=== PATIENT | female | born 1980 | race American Indian/Alaskan Native ===

== ENCOUNTER 2017-06-30 18:24 | Emergency (ER) | payer MEDICAID ==
[2017-06-30 23:58] LABS: Albumin/Globulin Ratio 0.5 %; Alkaline Phosphatase 70 units/L (35-129); Anion Gap 25 mmol/L; Calcium 7.3 mg/dL (8.4-10.2); Carbon Dioxide 12 mmol/L (22-30); Chloride 103.8 mmol/L (98-107); Glucose 102 mg/dL (65-100); Potassium 5.1 mmol/L (3.6-5.0); Sodium 136 mmol/L (137-145)
[2017-06-30 23:59] LABS: Alanine Aminotransferase < 5 units/L (7-56)
[2017-07-01 00:05] LABS: BUN/Creatinine Ratio 6.92; Blood Urea Nitrogen 115 mg/dL (7-17)
--- NOTE | 2017-07-01 03:22 | Emergency Department Report ---
ED Recheck HPI - General Chief Complaint: Recheck/Abnormal Lab/Rx Stated Complaint: NEEDS POTASSIUM CHECK, MISSED DIALYSIS Time Seen by Provider: 07/01/17 03:08 Source: patient Mode of arrival: Ambulatory Limitations: No Limitations - History of Present Illness Initial Comments: Patient presents to emergency department after missing dialysis yesterday. She is requesting labs to determine if she can get dialysis tomorrow. She states that her dialysis center requested basic lab work. She has no symptoms of shortness of breath chest pain or volume overload. MD Complaint: abnormal lab -: Gradual Returns Today for: CBOAL Symptoms Since Prior Visit: no new symptoms Context: called for abnorm lab res Associated Symptoms: none - Related Data Home Medications Medication Instructions Recorded Confirmed Last Taken Unobtainable 07/01/17 07/01/17 Unknown Allergies Allergy/AdvReac Type Severity Reaction Status Date / Time ergocalciferol (vitamin D2) Allergy Hives Verified 07/01/17 02:42 [From Vitamin D2] ED Review of Systems ROS: Stated complaint: NEEDS POTASSIUM CHECK, MISSED DIALYSIS Other details as noted in HPI Respiratory: denies: cough, shortness of breath, SOB with exertion Cardiovascular: denies: chest pain, palpitations Musculoskeletal: back pain. denies: arthralgia Neurological: denies: weakness, numbness, paresthesias ED Past Medical Hx - Past Medical History Hx Renal Disease: Yes - Family History Family history: no significant - Social History Smoking Status: Never Smoker Substance Use Type: Marijuana - Medications Home Medications: Home Medications Medication Instructions Recorded Confirmed Last Taken Type Unobtainable 07/01/17 07/01/17 Unknown History ED Physical Exam - General Limitations: No Limitations General appearance: alert, in no apparent distress, obese - Head Head exam: Present: atraumatic, normocephalic - Eye Eye exam: Present: normal appearance. Absent: scleral icterus, conjunctival injection - Neck Neck exam: Present: normal inspection. Absent: lymphadenopathy - Respiratory Respiratory exam: Present: normal lung sounds bilaterally. Absent: respiratory distress, wheezes - Cardiovascular Cardiovascular Exam: Present: regular rate, normal rhythm, normal heart sounds - GI/Abdominal GI/Abdominal exam: Present: soft. Absent: guarding, rebound - Extremities Exam Extremities exam: Present: normal inspection - Back Exam Back exam: Absent: tenderness, muscle spasm, paraspinal tenderness - Neurological Exam Neurological exam: Present: alert, oriented X3 ED Course Vital Signs 06/30/17 07/01/17 18:35 02:42 Temperature 98.1 F Pulse Rate 74 72 Respiratory 18 14 Rate Blood Pressure 154/94 Blood Pressure 151/90 [Left] O2 Sat by Pulse 98 100 Oximetry ED Recheck MDM - Medical Decision Making Patient here for lab check. Potassium is 5.5. She has no symptoms. Plan to treat patient with Kayexalate, check EKG and as long as there are no evidence of hyperkalemia on EKG we'll plan to discharge the patient home. Patient is comfortable with this plan and will follow up immediately with dialysis in the a.m. EKG shows sinus 72 on normal there is no evidence of hyperkalemia on EKG. Plan to discharge the patient home. We'll give a dose of 30 mg of Kayexalate. Portions of this chart were dictated with dictation software. There may be dictation errors contained within this note. Critical care attestation.: If time is entered above; I have spent that time in minutes in the direct care of this critically ill patient, excluding procedure time. ED Disposition Clinical Impression: Hyperkalemia Disposition: DC-01 TO HOME OR SELFCARE Is pt being admited?: No Condition: Stable Referrals: KISHORE FRANCO [Other] - 3-5 Days
[2017-07-01] MEDS ORDERED: KIONEX PO ONE (03:52)
[2017-07-01 04:08] VITALS: BP 146/84
== END 2017-07-01 04:08 | disposition home or self-care (01) ==
LOC: ED 18:24
DX: E87.5 Hyperkalemia (principal); F12.10 Cannabis abuse, uncomplicated; N18.6 End stage renal disease
CPT/HCPCS: 36415; 80053; 93005; 93010

== ENCOUNTER 2017-07-18 12:55 | Emergency (ER) | payer MEDICAID ==
[2017-07-18 14:55] LABS: BUN/Creatinine Ratio 3.75; Calcium 8.2 mg/dL (8.4-10.2); Chloride 96.6 mmol/L (98-107); Potassium 3.6 mmol/L (3.6-5.0)
--- NOTE | 2017-07-18 16:11 | XRay Report ---
FINAL REPORT EXAM: XR CHEST ROUTINE 2V HISTORY: Shortness of breath TECHNIQUE: PA and lateral views of the chest PRIORS: None. FINDINGS: Lines, tubes, and devices: Double-lumen right jugular catheter terminates in the distal superior vena cava. Lungs and pleura: Trachea is normal in position. Lungs are clear of infiltrate, pleural effusion, vascular congestion, or pneumothorax. Cardiomediastinal silhouette: Cardiac and mediastinal silhouettes are unremarkable. Other: Bony structures demonstrate degenerative disc changes throughout the thoracic spine. IMPRESSION: No acute cardiopulmonary process seen.
--- NOTE | 2017-07-18 16:56 | Emergency Department Report ---
HPI - General Chief Complaint: Dizziness Time Seen by Provider: 07/18/17 16:15 - HPI HPI: This is a 37 year-old female presents to the emergency department by EMS with complaint of some dizziness and suspected low hemoglobin. The patient is end-stage renal disease on hemodialysis on Wednesday/ Wednesday/Wednesday. She recently moved here from [place] and therefore does not have any established rat trapper. She did receive dialysis last Wednesday but afterwards she says that she was told that her hemoglobin was low and if they had known the level prior to dialysis, that they would not have given her dialysis and instead would have sent her into the emergency department. She was told that she needs to get her hemoglobin rechecked to make sure that she does not need a transfusion. The patient's only physical complaint is some mild dizziness. She says that she walked across the street from her hotel to a store and was very dizzy and had to sit down. She has some dizziness still but it is improved without any intervention. She denies any headache, visual change , slurred speech, chest pain, shortness of breath. ED Past Medical Hx - Past Medical History Previous Medical History?: Yes Hx Renal Disease: Yes (HD on M-W-F) Additional medical history: Anemia - Surgical History Past Surgical History?: Yes Additional Surgical History: Right chest permcath - Social History Smoking Status: Current Some Day Smoker Substance Use Type: Marijuana - Medications Home Medications: Home Medications Medication Instructions Recorded Confirmed Last Taken Type Unobtainable 07/01/17 07/01/17 Unknown History ED Review of Systems ROS: Stated complaint: LIGHT HEADEDNESS Other details as noted in HPI Comment: All other systems reviewed and negative Constitutional: denies: chills, fever Eyes: denies: eye pain, eye discharge, vision change ENT: denies: ear pain, throat pain Respiratory: denies: cough, shortness of breath, wheezing Cardiovascular: denies: chest pain, palpitations Gastrointestinal: denies: abdominal pain, nausea, diarrhea Genitourinary: denies: urgency, dysuria, discharge Musculoskeletal: denies: back pain, joint swelling, arthralgia Skin: denies: rash, lesions Neurological: other (dizziness). denies: headache, paresthesias Physical Exam - Physical Exam Vital Signs: Vital Signs 07/18/17 14:08 Temperature 98.1 F Pulse Rate 82 Respiratory 18 Rate Blood Pressure 122/69 O2 Sat by Pulse 100 Oximetry Physical Exam: GENERAL: The patient is well-developed well-nourished. HENT: Normocephalic. Atraumatic. Patient has moist mucous membranes. No nystagmus. EYES: Extraocular motions are intact. Pupils equal reactive to light bilaterally. NECK: Supple. Trachea is midline. CHEST/LUNGS: Clear to auscultation. There is no respiratory distress noted. There is a Vas-Cath in the right chest wall. HEART/CARDIOVASCULAR: Regular. There is no tachycardia. There is no gallop rub or murmur. ABDOMEN: Abdomen is soft, nontender. Patient has normal bowel sounds. There is no abdominal distention. Obese habitus. SKIN: Skin is warm and dry. NEURO: The patient is awake, alert, and oriented. The patient is cooperative. The patient has no focal neurologic deficits. The patient has normal speech. MUSCULOSKELETAL: There is no tenderness or deformity. There is no limitation range of motion. There is no evidence of acute injury. ED Course Vital Signs 07/18/17 14:08 Temperature 98.1 F Pulse Rate 82 Respiratory 18 Rate Blood Pressure 122/69 O2 Sat by Pulse 100 Oximetry ED Medical Decision Making - Lab Data Result diagrams: 07/18/17 17:28 07/18/17 14:28 - EKG Data -: EKG Interpreted by Nc EKG shows normal: sinus rhythm, axis, intervals (Prolonged QTc), QRS complexes, ST-T waves Rate: normal - EKG Data When compared to previous EKG there are: previous EKG unavailable Interpretation: other (Sinus Ryhtm, No STEMI, with slightly prolonged QTc) - Radiology Data Radiology results: image reviewed interpreted by me: Chest x-ray does not show any acute process. There are no pleural effusions, obvious pneumonia and there is no pneumothorax. - Medical Decision Making 37-year-old female presents to the emergency department for evaluation of possible anemia. She has some nonspecific dizziness. Physical examination of focal, motor or sensory deficits in her cranial nerves are intact. Hemoglobin came back at 7. This is most likely secondary to anemia of chronic kidney disease as there is no acute blood loss. As the patient's dizziness could be symptomatic anemia, and since the patient may not get dialysis with a hemoglobin of 7, per the dialysis center, the plan was going to be to give her a one unit transfusion of packed red blood cells. However the patient demanded that the transfusion be given through the Vas-Cath. We explained her that the Vas-Cath is for dialysis and not for blood draws, IV fluid or blood transfusion in the emergency department. She refused any attempts at peripheral IV placement. She understands that without the IV placement that we cannot give her a transfusion. She understands that she could have worsening of her dizziness, development of shortness of breath or chest pain, syncope. Despite understanding these risks she still refuses peripheral IV placement and has signed out against medical advise. She understands that she can return to the emergency department remained point if she changes her mind or if any acute distress. Critical Care Time: No Critical care attestation.: If time is entered above; I have spent that time in minutes in the direct care of this critically ill patient, excluding procedure time. ED Disposition Clinical Impression: Dizziness Anemia in chronic kidney disease Qualifiers: Chronic kidney disease stage: on chronic dialysis Qualified Code(s): N18.6 - End stage renal disease; D63.1 - Anemia in chronic kidney disease; Z99.2 - Dependence on renal dialysis CKD (chronic kidney disease) Qualifiers: Chronic kidney disease stage: on chronic dialysis Qualified Code(s): N18.6 - End stage renal disease; Z99.2 - Dependence on renal dialysis Disposition: DC-07 LEFT AGAINST MED ADVICE Is pt being admited?: No Condition: Stable Referrals: PRIMARY CARE [Primary Care Provider] - 3-5 Days Forms: AMA Form Time of Disposition: 22:47
[2017-07-18 17:38] LABS: Basophils % (Auto) 0.6 % (0.0-1.8); Eosinophils % (Auto) 0.6 % (0.0-4.3); Hematocrit 22.2 % (30.3-42.9); Mean Corpuscular HGB Conc 32 % (30-34); Mean Corpuscular Volume 81 fl (79-97); Platelet Count 279 K/mm3 (140-440); Red Blood Count 2.74 M/mm3 (3.65-5.03); White Blood Count 8.8 K/mm3 (4.5-11.0)
[2017-07-18 17:40] LABS: Mean Corpuscular Hemoglobin 26 pg (28-32)
[2017-07-18] MEDS ORDERED: NACL 0.9% 500 ML 500 ML IV ONE (17:48)
[2017-07-18 21:46] VITALS: BP 128/80
== END 2017-07-18 21:47 | disposition left against medical advice (07) ==
LOC: ED 12:55
DX: R42 Dizziness and giddiness (principal); D63.1 Anemia in chronic kidney disease; N18.6 End stage renal disease; Z99.2 Dependence on renal dialysis; F17.200 Nicotine dependence, unspecified, uncomplicated; F12.10 Cannabis abuse, uncomplicated; Z88.8 Allergy status to other drugs, medicaments and biological substances
CPT/HCPCS: 36415; 71020; 80048; 85025; 86850; 86900; 86901; 86920; 93005; 93010; 99284; J7040; 36430

== ENCOUNTER 2017-09-09 14:38 | Emergency (ER) | payer SELFPAY ==
[2017-09-09 15:24] LABS: Basophils % (Auto) 0.5 % (0.0-1.8); Hematocrit 28.3 % (30.3-42.9); Hemoglobin 8.5 gm/dl (10.1-14.3); Mean Corpuscular HGB Conc 30 % (30-34); Mean Corpuscular Hemoglobin 26 pg (28-32); Mean Corpuscular Volume 88 fl (79-97); Platelet Count 281 K/mm3 (140-440); Red Blood Count 3.22 M/mm3 (3.65-5.03); Red Cell Distribution Width 18.1 % (13.2-15.2); White Blood Count 12.3 K/mm3 (4.5-11.0)
[2017-09-09 15:39] LABS: Anion Gap 24 mmol/L; BUN/Creatinine Ratio 3; Blood Urea Nitrogen 36 mg/dL (7-17); Calcium 8.3 mg/dL (8.4-10.2); Carbon Dioxide 23 mmol/L (22-30); Chloride 95.1 mmol/L (98-107); Glucose 102 mg/dL (65-100); Sodium 138 mmol/L (137-145)
--- NOTE | 2017-09-09 16:04 | Emergency Department Report ---
ED Dizziness HPI - General Chief Complaint: Dizziness Stated Complaint: FEELING WEAK/LOW BP Time Seen by Provider: 09/09/17 15:34 Source: patient, EMS Mode of arrival: Stretcher Limitations: No Limitations - History of Present Illness Initial Comments: 37 YO FEMALE H/O CHRONIC RENAL FAILURE AND ON DIALYSIS HAD A CATHETER EXCHANGE YESTERDAY WHO WAS WALKING DOWN THE STREET WHEN SHE BECAME NAUSEATED AND VOMITED ONCE. PT DID NOT HAD CHEST PAINOR SOB BUT WAS DIZZY. SHE HAD BEEN WALKING 3/4 OF [place]. HER DIALYSIS IS MWF. HER PRESSURE WAS SYSTOLIC 80. MD Complaint: dizziness -: Sudden History of Same: No History of Trauma: No Severity: moderate Improves With: nothing Worsens With: nothing Associated Symptoms: denies other symptoms - Related Data Home Medications Medication Instructions Recorded Confirmed Last Taken Unobtainable 07/01/17 07/01/17 Unknown Allergies Allergy/AdvReac Type Severity Reaction Status Date / Time ergocalciferol (vitamin D2) Allergy Hives Verified 09/09/17 14:47 [From Vitamin D2] ED Review of Systems ROS: Stated complaint: FEELING WEAK/LOW BP Other details as noted in HPI Constitutional: denies: chills, fever Eyes: denies: eye pain, eye discharge, vision change ENT: denies: ear pain, throat pain Respiratory: denies: cough, shortness of breath, wheezing Cardiovascular: denies: chest pain, palpitations Endocrine: no symptoms reported Gastrointestinal: denies: abdominal pain, nausea, diarrhea Genitourinary: denies: urgency, dysuria, discharge Musculoskeletal: denies: back pain, joint swelling, arthralgia Skin: denies: rash, lesions Neurological: denies: headache, weakness, paresthesias Psychiatric: denies: anxiety, depression Hematological/Lymphatic: denies: easy bleeding, easy bruising ED Past Medical Hx - Past Medical History Hx Hypertension: Yes Hx Heart Attack/AMI: No Hx Congestive Heart Failure: No Hx Diabetes: No Hx Renal Disease: Yes Additional medical history: Anemia - Surgical History Additional Surgical History: Right chest permcath - Social History Smoking Status: Never Smoker Substance Use Type: Alcohol - Medications Home Medications: Home Medications Medication Instructions Recorded Confirmed Last Taken Type Unobtainable 07/01/17 07/01/17 Unknown History ED Physical Exam - General Limitations: No Limitations ED Course Vital Signs 09/09/17 09/09/17 09/09/17 14:47 15:06 17:11 Temperature 98.8 F 98.4 F 98.4 F Pulse Rate 69 77 78 Respiratory 18 16 16 Rate Blood Pressure 90/53 Blood Pressure 97/54 116/59 [Right] O2 Sat by Pulse 99 100 100 Oximetry - Reevaluation(s) Reevaluation #1: 09/09/17 16:[address] WITHOUT DIFFICULTY, NO DIZZINESS. ED Medical Decision Making - Lab Data Result diagrams: 09/09/17 15:05 09/09/17 15:05 - EKG Data -: EKG Interpreted by Me EKG shows normal: sinus rhythm, axis, intervals, QRS complexes, ST-T waves - Radiology Data Radiology results: report reviewed (cxr:negative CTA CHEST: NO PE) Critical care attestation.: If time is entered above; I have spent that time in minutes in the direct care of this critically ill patient, excluding procedure time. ED Disposition Clinical Impression: Dizziness, ESRD on dialysis Anemia Qualifiers: Anemia type: due to chronic kidney disease Chronic kidney disease stage: on chronic dialysis Qualified Code(s): N18.6 - End stage renal disease Hypotension Qualifiers: Hypotension type: unspecified hypotension type Qualified Code(s): I95.9 - Hypotension, unspecified Disposition: DC-01 TO HOME OR SELFCARE Is pt being admited?: No Does the pt Need Aspirin: No Condition: Stable Instructions: Dizziness (ED), Hypotension (ED), Anemia (ED) Additional Instructions: PLEASE REST AT HOME, SEE YOUR DR TOMORROW Referrals: PRIMARY CAREMD [Primary Care Provider] - 3-5 Days Time of Disposition: 19:36
--- NOTE | 2017-09-09 19:29 | Cat Scan Report ---
FINAL REPORT EXAM: CT CHEST WO CON HISTORY: CHEST PAIN TECHNIQUE: Standard unenhanced CT of the chest at 2.5 mm axial increments. Coronal and sagittal reconstruction was also obtained. PRIORS: None. FINDINGS: The lung parenchyma are expanded and clear with no evidence for parenchymal nodules, infiltrates, vascular congestion, pleural effusion, or pneumothorax. There is no evidence for mediastinal, hilar, or axillary adenopathy. The esophagus is collapsed. The trachea is midline. Cardiovascular structures are within normal limits. Cardiac size and aorta are normal. Images through the lung bases include upper abdomen which show large staghorn calculi in the left kidney. There is a large calculus in the right renal pelvis/ureteropelvic junction there is ring 14 x 6 mm (axial image 154). There is also a large triangular-shaped calcification in the left renal pelvis measuring 1.8 x 3.2 cm (axial image 146). Both kidneys are enlarged and have hypodense medullary pyramids bilaterally. Findings are likely due to chronic obstruction. Bony structures show no focal abnormalities. No evidence for bony fracture is seen. Degenerative disc changes throughout the thoracic spine are present. Large spurs are present throughout the thoracic spine. IMPRESSION: 1. no acute abnormality identified in the chest. 2. Large staghorn calculi in the left kidney. Bilateral calculi in the renal pelvises or ureteropelvic junction on the right is seen.
[2017-09-09 19:47] VITALS: BP 133/71
--- NOTE | 2017-09-09 20:54 | Nuclear Medicine Report ---
FINAL REPORT EXAM: NM LUNG SCAN PERF/VENT HISTORY: ?PE TECHNIQUE: Perfusion imaging of the lungs was performed in multiple planar projections. Ventilation imaging was performed in the posterior projection during initial, equilibrium, and washout phases. Correlation with a chest x-ray dated 09/09/2017 was made. DOSE: 15.0 millicuries Xe-133 gas; 5.0 millicuries 99m Tc MAA given IV. PRIORS: None. FINDINGS: There are multiple subsegmental perfusion defects in the upper and lower lobes on the right. No corresponding abnormality on ventilation is seen. There is also subtle defect in the lateral aspect of the lingula. Findings are worrisome for pulmonary embolism. Ventilation study is homogeneous throughout with normal equilibrium and washout. No evidence for air trapping is seen. IMPRESSION: High probability v/Q scan. Multiple profusion defects identified in the right upper and lower lobes and lingula.
--- NOTE | 2017-09-13 08:18 | XRay Report ---
FINAL REPORT EXAM: XR CHEST ROUTINE 2V HISTORY: near syncope TECHNIQUE: PA and lateral chest radiographs. Note that images were acquired on 09/09/2017 but not submitted for interpretation until 09/13/2017 PRIORS: 07/18/2017, noncontrast CT and ventilation-perfusion scan on 09/09/2017 FINDINGS: No mediastinal shift. Cardiac silhouette is not enlarged. Unchanged right chest central line. No pneumothorax, effusion, or focal pulmonary opacity. No acute skeletal finding. IMPRESSION: No focal pulmonary opacity.
== END 2017-09-09 20:20 | disposition home or self-care (01) ==
LOC: ED 14:38
DX: I95.9 Hypotension, unspecified (principal); R42 Dizziness and giddiness; I12.0 Hypertensive chronic kidney disease with stage 5 chronic kidney disease or end stage renal disease; N18.6 End stage renal disease; D64.9 Anemia, unspecified; Z88.8 Allergy status to other drugs, medicaments and biological substances; Z99.2 Dependence on renal dialysis
CPT/HCPCS: 36415; 71020; 71250; 78582; 80048; 81025; 84484; 85025; 93005; 93010; 99285; A9540; A9558

== ENCOUNTER 2017-09-09 22:56 | Inpatient (IN) | payer MEDICAID ==
--- NOTE | 2017-09-09 23:29 | Emergency Department Report ---
ED General Adult HPI - General Stated complaint: CALL BACK Time Seen by Provider: 09/09/17 23:27 Source: patient Mode of arrival: Ambulatory Limitations: No Limitations - History of Present Illness Initial comments: Patient is a 37-year-old female that was called back into the ER due to positive findings on a VQ scan for high probability of upper lobe and lower lobe right side PEs. She was here earlier today for dizziness and weakness and low blood pressure. patient has a past medical history of hemodialysis, hypertension, and anemia. Patient states she still have a weakness and dizziness. She denies chest pain shortness of breath this time. -: Gradual Consistency: constant Improves with: none Worsens with: none Associated Symptoms: weakness Treatments Prior to Arrival: none - Related Data Home Medications Medication Instructions Recorded Confirmed Last Taken Unobtainable 07/01/17 07/01/17 Unknown Allergies Allergy/AdvReac Type Severity Reaction Status Date / Time ergocalciferol (vitamin D2) Allergy Hives Verified 09/09/17 14:47 [From Vitamin D2] ED Review of Systems ROS: Stated complaint: CALL BACK Other details as noted in HPI Comment: All other systems reviewed and negative Constitutional: no symptoms reported, see HPI, weakness Eyes: as per HPI ENT: as per HPI Respiratory: no symptoms reported, see HPI Cardiovascular: as per HPI Endocrine: no symptoms reported, see HPI Gastrointestinal: as per HPI Genitourinary: as per HPI Musculoskeletal: as per HPI Skin: as per HPI Neurological: as per HPI Psychiatric: as per HPI Hematological/Lymphatic: as per HPI ED Past Medical Hx - Past Medical History Hx Hypertension: Yes Hx Heart Attack/AMI: No Hx Congestive Heart Failure: No Hx Diabetes: No Hx Renal Disease: Yes Additional medical history: Anemia - Surgical History Additional Surgical History: Right chest permcath - Social History Substance Use Type: Marijuana, Prescribed - Medications Home Medications: Home Medications Medication Instructions Recorded Confirmed Last Taken Type Unobtainable 07/01/17 07/01/17 Unknown History ED Physical Exam - General General appearance: alert, in no apparent distress - Head Head exam: Present: atraumatic, normocephalic - Eye Eye exam: Present: normal appearance - ENT ENT exam: Present: mucous membranes moist - Neck Neck exam: Present: normal inspection - Respiratory Respiratory exam: Present: normal lung sounds bilaterally. Absent: respiratory distress - Cardiovascular Cardiovascular Exam: Present: regular rate, normal rhythm. Absent: systolic murmur, diastolic murmur, rubs, gallop - GI/Abdominal GI/Abdominal exam: Present: soft, normal bowel sounds - Extremities Exam Extremities exam: Present: normal inspection - Back Exam Back exam: Present: normal inspection - Neurological Exam Neurological exam: Present: alert, oriented X3 - Psychiatric Psychiatric exam: Present: normal affect, normal mood - Skin Skin exam: Present: warm, dry, normal color, other (right chest permacath noted. ). Absent: rash ED Course Vital Signs 09/09/17 23:25 Temperature 98.9 F Pulse Rate 97 H Respiratory 18 Rate Blood Pressure 107/69 O2 Sat by Pulse 99 Oximetry ED Medical Decision Making - Medical Decision Making 7-year-old female found to have high probability on VQ scan called back in. Patient will be admitted. Hospitalist consulted for possible admission. Hospitalist agreed to admit. - Differential Diagnosis PE.dizziness. weakness Critical care attestation.: If time is entered above; I have spent that time in minutes in the direct care of this critically ill patient, excluding procedure time. ED Disposition Clinical Impression: Dizziness, Pulmonary embolism, Weakness Disposition: DC-09 OP ADMIT IP TO THIS HOSP Is pt being admited?: Yes Does the pt Need Aspirin: No Condition: Serious Referrals: PRIMARY CARE,MD [Primary Care Provider] - 3-5 Days
--- NOTE | 2017-09-09 23:57 | History and Physical Report ---
History of Present Illness Date of examination: 09/09/17 History of present illness: 37-year-old woman history of end-stage renal disease on dialysis Wednesday comes emergency room because she was walking to the bus stop to go to her sister's house for Thanksgiving when she developed dizziness, generalized weakness, vomiting, difficulty standing. Her blood pressure was low upon arrival to the emergency room. A VQ scan was ordered, the patient was discharged from the hospital but was later called back because her V/Q was positive for pulmonary emboli. Patient was just discharged from the hospital yesterday, no recent travel, leg pain Review Of Systems: Constitutional: no weight loss Ears, eyes, nose, mouth and throat: no nasal congestion, no nasal discharge, no sinus pressure, blurry vision, diplopia Neck: No neck pain or rigidity. Cardiovascular: no chest pain, orthopnea, palpitations Respiratory: No shortness of breath, cough Gastrointestinal: no abdominal pain, hematochezia Genitourinary : no dysuria, frequency , hematuria Musculoskeletal: no muscle ache Integumentary: no rash, no pruritis Neurological: no parathesias, focal weakness Endocrine: no cold or heat intolerance, no polyuria or polydipsia Hematologic/Lymphatic: no easy bruising, no easy bleeding, no gland swelling Allergic/Immunologic: no urticaria, no angioedema. PAST MEDICAL HISTORY:end-stage renal disease PAST SURGICAL HISTORY:none FAMILY HISTORY: Her potential SOCIAL HISTORY: 2 cigarettes a day, no alcohol or drug Medications and Allergies Allergies Allergy/AdvReac Type Severity Reaction Status Date / Time ergocalciferol (vitamin D2) Allergy Hives Verified 09/09/17 14:47 [From Vitamin D2] Home Medications Medication Instructions Recorded Confirmed Last Taken Type Unobtainable 07/01/17 07/01/17 Unknown History Exam - Physical Exam Narrative exam: Gen. appearance: Patient lying in bed in no acute distress HEENT: Normocephalic/atraumatic, pupils equal round reactive to light, extra alkaline movement intact, no scleral icterus, no JVD or thyromegaly or nodule, neck is supple, mucous membrane moist, no erythema or exudate Heart: S1-S2, regular rate and rhythm Lungs: Clear to auscultation bilateral breathing comfortable Abdomen: Positive bowel sounds, nontender, nondistended, no organomegaly Extremities: No edema, cyanosis, clubbing Neuro:: Oriented 3 , cranial nerves II-12 intact, speech, motor intact Skin: No rash, nodules, warm dry - Constitutional Vitals: Temp Pulse Resp BP Pulse Ox 98.9 F 97 H 18 107/69 99 09/09/17 23:25 09/09/17 23:25 09/09/17 23:25 09/09/17 23:25 09/09/17 23:25 Results - Imaging and Cardiology EKG: image reviewed Chest x-ray: image reviewed Assessment and Plan v/q reviewed Labs reviewed from the previous visit ER visit Assessment Acute pulmonary emboli End-stage renal disease on dialysis Anemia Plan Admit to medicine Start heparin drip, consult renal for dialysis Checkup of the lower extremity DVT prophylaxis initiated
[2017-09-10] MEDS ORDERED: DULCOLAX PR PRN (00:34)
[2017-09-10] MEDS ORDERED: ZOFRAN IV PRN (00:34)
[2017-09-10] MEDS ORDERED: TYLENOL PO PRN (00:34)
[2017-09-10] MEDS: HEPARIN/ 0.45% NACL-25,000 UNIT/500 ML 25,000 UNIT/500 ML BAG IV SCH ×2 (02:13→19:18)
--- NOTE | 2017-09-10 11:01 | Consultation ---
History of Present Illness - History of Present Illness Thank you for the consultation patient was evaluated today. Source of information; patient himself current records were also reviewed History of presenting illness; Patient is a 37-year-old -Ugand[place] female who has been admitted here with bilateral pulmonary embolism for which she has been initiated on IV heparin. Patient is currently being dialyzed at [facility] where she' s being followed by our group. Patient was just discharged yesterday from the hospital but due to follow VQ scan she was called in to get admitted. She has no complaints of any shortness of breath chest pain also has difficult vascular access and has been refusing lab draws as requested.. Patient's current access is a permacath which has been working well she has no recent history of fever or chills dysuria burning frequency urgency of urination. Patient has had a VQ scan which was showing high probably and hence she was started on IV heparin. Subjectively patient is feeling better. As of 09/09 her BOM is 36 creatinine is 11 potassium is 4.0 calcium 8.3 Past medical history is significant for hypertension End-stage renal disease Secondary hyperparathyroidism Morbid obesity Allergies:vitamin D Social history: positive for tobacco negative for alcohol and drugs Family history:negative for renal disorder Review of system is positive for dizziness shortness of breath Complete review of systems obtained pertinent positive above mother's review of systems negative Physical examination General: No acute distress HEENT: Oral mucosa moist no pharyngeal erythema no pallor or icterus no uremic order Neck: Supple no evidence of any thyromegaly trachea midline no JVD Chest: Clear to auscultation no crackles are also wheezes anteriorly Heart: Regular rate and rhythm S1-S2 heard no S3-S4 Abdomen: Soft nontender no renal bruit no CVA tenderness no suprapubic fullness no organomegaly Extremity: Minimal edema dry skin no peripheral cyanosis pulses palpable Neurological: Alert awake follows command grossly nonfocal examination Back: Nontender thoracolumbar spine Musculoskeletal: No joint effusion noted Skin: No petechial rash/noted Assessment and plan Assessment and plan End-stage renal disease patient is currently on maintenance hemodialysis: There is no acute emergent indication for renal replacement therapy today patient will dialyzed here on Wednesday schedule Anemia and end-stage renal disease current hemoglobin 8.5 to follow erythropoietin, with dialysis Secondary hyperparathyroidism: To monitor phosphorus and PTH level Morbid obesity: Counseled and educated for weight loss Poorly compliant patient counseled and educated to comply with lab draws Multiple comorbidities including end-stage disease, hypertension obesity secondary hyperparathyroidism Chronic tobacco abuse noted also discussed educated We'll continue to follow and make recommendation from renal standpoint Nature and issue of renal-related issues were discussed with patient, all questions were answered and simple Citizen Of [place] Patient does have good understanding about renal-related issues. Counseled and educated to get further education from [facility] and related links, and if any further question to clarify with me We'll continue to follow and make recommendations from renal standpoint If you have any questions please feel free to contact me at [phone] Medications and Allergies Allergies Allergy/AdvReac Type Severity Reaction Status Date / Time ergocalciferol (vitamin D2) Allergy Hives Verified 09/09/17 14:47 [From Vitamin D2] Home Medications Medication Instructions Recorded Confirmed Last Taken Type Unobtainable 07/01/17 07/01/17 Unknown History Active Meds: Active Medications Acetaminophen (Tylenol) 650 mg PO Q4H PRN PRN Reason: Pain MILD(1-3)/Fever >100.5/BALTAZAR Bisacodyl (Dulcolax) 10 mg VA QDAY PRN PRN Reason: Constipation unrelieved by MOM Heparin Sodium/Sodium Chloride (Heparin/ 0.45% Nacl-25,000 Unit/500 Ml) 25,000 unit in 500 mls @ 30 mls/hr IV TITR TAYLOR; 1,500 UNITS/HR PRN Reason: Protocol Last Admin: 09/10/17 02:13 Dose: 1,500 units/hr, 30 mls/hr Ondansetron HCl (Zofran) 4 mg IV Q8H PRN PRN Reason: N/V unrelieved by Reglan Oxycodone/Acetaminophen (Percocet 5/325) 1 tab PO Q6H PRN PRN Reason: Pain, Moderate (4-6) Exam - Vital Signs Vital signs: Vital Signs Resp 14 09/09/17 23:07
[2017-09-10 13:57] LABS: INR 1.1 (0.87-1.13)
[2017-09-10 13:58] LABS: Partial Thromboplastin Time 38.3 Sec. (24.2-36.6)
--- NOTE | 2017-09-10 16:05 | Progress Note ---
Assessment and Plan Assessment and plan: 37-year-old -Tunisian female with medical history significant for morbid obesity, ESRDon hemodialysis presented to the emergency department after she become short of breath and getting easily tired. In the emergency department VQ scan was done and significant for high probabilty PE Pulmonary embolism - Patient is on heparin drip - Vital signs stable - Doppler Ultrasound of the legs is negative for DVT End-stage renal disease on hemodialysis - Nephrology consulted Anemia of chronic illness - We'll follow H&H Morbid obesity - I have counseled her about weight loss DVT prophylaxis - On heparin Disposition - Continue inpatient care, will change to by mouth anticoagulation on discharge History Interval history: Patient was seen and evaluated this morning, patient denied any chest pain, shortness of breath. Patient refused blood draw claiming she is hard stick. Hospitalist Physical - Physical exam Narrative exam: Not in cardiopulmonary distress. The patient is morbidly obese. Vital signs as documented. Head exam is unremarkable. No scleral icterus . Neck is without jugular venous distension, thyromegaly, or carotid bruits. Lungs are clear to auscultation. Cardiac exam reveals regular rate and Rhythm. First and second heart sounds normal. No murmurs, rubs or gallops. Abdominal exam reveals normal bowel sounds, no masses, no organomegaly and no aortic enlargement. Extremities are nonedematous and both femoral and pedal pulses are normal. SEARCHLIGHT OPERATOR: Alert and oriented 3. No focal weakness. - Constitutional Vitals: Temp Pulse Resp BP Pulse Ox 98.4 F 71 18 132/84 99 09/10/17 07:57 09/10/17 07:57 09/10/17 07:57 09/10/17 07:57 09/10/17 07:57 Results - Labs Labs: Laboratory Last Values PT 14.8 Sec. (12.2-14.9) 09/10/17 13:33 INR 1.10 (0.87-1.13) 09/10/17 13:33 APTT 38.3 Sec. (24.2-36.6) H 09/10/17 13:33 Heparin Anti-Xa Level < 0.10 U.I./ml (0.3-0.7) L 09/10/17 13:33 - Imaging and Cardiology Imaging and Cardiology: VQ scan high problem PE
[2017-09-10] MEDS ORDERED: NACL 0.9% 100 ML IV PRN (16:12)
[2017-09-11 06:41] LABS: Basophils % (Auto) 0.4 % (0.0-1.8); Hematocrit 25.5 % (30.3-42.9); Mean Corpuscular HGB Conc 31 % (30-34); Mean Corpuscular Hemoglobin 27 pg (28-32); Mean Corpuscular Volume 87 fl (79-97); Platelet Count 255 K/mm3 (140-440); Red Blood Count 2.92 M/mm3 (3.65-5.03); Red Cell Distribution Width 17.8 % (13.2-15.2); White Blood Count 8.6 K/mm3 (4.5-11.0)
[2017-09-11 06:51] LABS: Chloride 98.4 mmol/L (98-107); Potassium 4.1 mmol/L (3.6-5.0)
[2017-09-11] MEDS: HEPARIN/ 0.45% NACL-25,000 UNIT/500 ML 25,000 UNIT/500 ML BAG IV SCH ×2 (08:09→23:32)
[2017-09-11] MEDS ORDERED: HEPARIN IV PRN (11:57)
[2017-09-11] MEDS ORDERED: NACL 0.9 (PRIMING MACHINE ONLY DIALYSIS) MC ONE (13:12)
--- NOTE | 2017-09-11 15:09 | Progress Note ---
Assessment and Plan Assessment and plan: 37-year-old -Ukrainian female with medical history significant for morbid obesity, ESRDon hemodialysis presented to the emergency department after she become short of breath and getting easily tired. In the emergency department VQ scan was done and significant for high probabilty PE Pulmonary embolism - Patient is on heparin drip - Vital signs stable - Doppler Ultrasound of the legs is negative for DVT End-stage renal disease on hemodialysis - Nephrology consulted Anemia of chronic illness - We'll follow H&H Morbid obesity - I have counseled her about weight loss DVT prophylaxis - On heparin Disposition - Continue inpatient care, will change to by mouth anticoagulation on discharge - PT evaluation History Interval history: Patient was seen and evaluated this morning, patient denied any chest pain, shortness of breath. Patient doesn't want blood draw. Hospitalist Physical - Physical exam Narrative exam: Not in cardiopulmonary distress. The patient is morbidly obese. Vital signs as documented. Head exam is unremarkable. No scleral icterus . Neck is without jugular venous distension, thyromegaly, or carotid bruits. Lungs are clear to auscultation. Cardiac exam reveals regular rate and Rhythm. First and second heart sounds normal. No murmurs, rubs or gallops. Abdominal exam reveals normal bowel sounds, no masses, no organomegaly and no aortic enlargement. Extremities are nonedematous and both femoral and pedal pulses are normal. SPANISH TUTOR: Alert and oriented 3. No focal weakness. - Constitutional Vitals: Temp Pulse Resp BP Pulse Ox 98.2 F 71 18 129/69 97 09/11/17 11:35 09/11/17 13:30 09/11/17 11:35 09/11/17 13:30 09/11/17 05:00 Results - Labs CBC & Chem 7: 09/11/17 05:11 09/11/17 05:11 Labs: Laboratory Last Values WBC 8.6 K/mm3 (4.5-11.0) 09/11/17 05:11 RBC 2.92 M/mm3 (3.65-5.03) L 09/11/17 05:11 Hgb 8.0 gm/dl (10.1-14.3) L 09/11/17 05:11 Hct 25.5 % (30.3-42.9) L 09/11/17 05:11 MCV 87 fl (79-97) 09/11/17 05:11 MCH 27 pg (28-32) L 09/11/17 05:11 MCHC 31 % (30-34) 09/11/17 05:11 RDW 17.8 % (13.2-15.2) H 09/11/17 05:11 Plt Count 255 K/mm3 (140-440) 09/11/17 05:11 Lymph % (Auto) 24.8 % (13.4-35.0) 09/11/17 05:11 Gonzales % (Auto) 10.8 % (0.0-7.3) H 09/11/17 05:11 Eos % (Auto) 4.0 % (0.0-4.3) 09/11/17 05:11 Baso % (Auto) 0.4 % (0.0-1.8) 09/11/17 05:11 Lymph # 2.1 K/mm3 (1.2-5.4) 09/11/17 05:11 Gonzales # 0.9 K/mm3 (0.0-0.8) H 09/11/17 05:11 Eos # 0.3 K/mm3 (0.0-0.4) 09/11/17 05:11 Baso # 0.0 K/mm3 (0.0-0.1) 09/11/17 05:11 Seg Neutrophils % 60.0 % (40.0-70.0) 09/11/17 05:11 Seg Neutrophils # 5.2 K/mm3 (1.8-7.7) 09/11/17 05:11 PT 14.8 Sec. (12.2-14.9) 09/10/17 13:33 INR 1.10 (0.87-1.13) 09/10/17 13:33 APTT 38.3 Sec. (24.2-36.6) H 09/10/17 13:33 Heparin Anti-Xa Level 0.19 U.I./ml (0.3-0.7) L 09/11/17 05:11 Sodium 136 mmol/L (137-145) L 09/11/17 05:11 Potassium 4.1 mmol/L (3.6-5.0) 09/11/17 05:11 Chloride 98.4 mmol/L (98-107) 09/11/17 05:11 Carbon Dioxide 22 mmol/L (22-30) 09/11/17 05:11 Anion Gap 20 mmol/L 09/11/17 05:11 BUN 50 mg/dL (7-17) H 09/11/17 05:11 Creatinine 12.7 mg/dL (0.7-1.2) H 09/11/17 05:11 Estimated GFR 4 ml/min 09/11/17 05:11 BUN/Creatinine Ratio 4 % 09/11/17 05:11 Glucose 84 mg/dL (65-100) 09/11/17 05:11 Calcium 8.0 mg/dL (8.4-10.2) L 09/11/17 05:11
[2017-09-11] MEDS: PERCOCET 5/325 PO PRN (16:35)
[2017-09-12] MEDS: PERCOCET 5/325 PO PRN (02:06)
[2017-09-12 06:12] LABS: Hematocrit 27.2 % (30.3-42.9); Hemoglobin 8.4 gm/dl (10.1-14.3)
[2017-09-12 10:08] VITALS: BP 135/86
--- NOTE | 2017-09-12 10:24 | Discharge Summary ---
Providers - Providers Date of Admission: 09/09/17 23:56 Date of discharge: 09/12/17 Attending physician: FAITH HERNANDEZ MD 09/10/17 00:34 Consult to Physician [CONS] Routine Consulting Provider: NELY SINCLAIR Reason For Exam: hd Place consult to:: Wilfredo Notified:: Service Phone number called:: [phone] Was contact made?: Yes If yes, spoke with:: Opal Time called:: :09/11/17 07:38 Physical Therapy Evaluation and Treat [CONS] Routine Comment: Reason For Exam: debility Primary care physician: PAPER LATCHER Hospitalization Reason for admission: acute PE, ESRD on hemodialysis Condition: Stable Pertinent studies: V/Q scan High probability V/Q scan. Multiple perfusion defects in the right upper and lower lobes and lingula. Bilateral Doppler ultrasound - Negative for DVT Hospital course: 37-year-old woman history of end-stage renal disease on dialysis Wednesday comes emergency room because she was walking to the bus stop to go to her sister's house for Thanksgiving when she developed dizziness, generalized weakness, vomiting, difficulty standing. Her blood pressure was low upon arrival to the emergency room. A VQ scan was ordered, the patient was discharged from the hospital but was later called back because her V/Q was positive for pulmonary emboli. Patient was just discharged from the hospital yesterday, no recent travel, leg pain. Patient was admitted to the floor and she was started on heparin drip, nephrology was consulted for her dialysis. PT evaluated her and recommended patient does't have problems in her mobility. Patient was hemodynamically stable at the time of discharge. Patient's questions and concerns were addressed at the bedside. Patient was discharged with eliquis. Patient was given a coupon for 1 month supply of eliquis and she said she will get her Medicare and Medicaid soon. Patient advised to follow up with her primary care physician, follow-up with nephrology for dialysis. Patient's medications were reviewed and updated of the time of discharge. Disposition: - TO HOME OR SELFCARE Time spent for discharge: 31 minutes - Discharge Diagnoses (1) Pulmonary embolism Status: Acute (2) Weakness Status: Acute (3) ESRD on dialysis Status: Acute (4) HTN (hypertension) Status: Acute Core Measure Documentation - Palliative Care Palliative Care/ Comfort Measures: Not Applicable - Core Measures Any of the following diagnoses?: DVT/PE - VTE Discharge Requirements Deep Vein Thrombosis/Pulmonary Embolism Present on Admission: Yes Has pt received <5 days of overlap therapy or INR<2.0: Yes Anticoagulant overlap therapy prescribed at discharge: No Contraindication No Overlap Therapy order at DC: Not Indicated Exam - Physical Exam Narrative exam: Not in cardiopulmonary distress. The patient is morbidly obese. Vital signs as documented. Head exam is unremarkable. No scleral icterus . Neck is without jugular venous distension, thyromegaly, or carotid bruits. Lungs are clear to auscultation. Cardiac exam reveals regular rate and Rhythm. First and second heart sounds normal. No murmurs, rubs or gallops. Abdominal exam reveals normal bowel sounds, no masses, no organomegaly and no aortic enlargement. Extremities are nonedematous and both femoral and pedal pulses are normal. VERIFICATION REP: Alert and oriented 3. No focal weakness. - Constitutional Vitals: Temp Pulse Resp BP Pulse Ox 98.3 F 83 18 135/86 99 09/12/17 10:00 09/12/17 10:00 09/12/17 10:00 09/12/17 10:00 09/12/17 10:00 Plan Activity: no restrictions Weight Bearing Status: Full Weight Bearing Diet: low fat, low cholesterol, renal Follow up with: [facility] [Provider Group] - 7 Days PRIMARY CARE, [Primary Care Provider] - 3-5 Days Prescriptions: Apixaban [Eliquis] 5 mg PO BID #74 tablet
--- NOTE | 2017-09-12 10:24 | Progress Note ---
Subjective Interval history: End-stage renal disease: Patient is currently in maintenance hemodialysis she will continue to dialyze 3 times a week Wednesday and Wednesday Anemia in end-stage renal disease: To monitor and follow erythropoietin as needed, current hemoglobin 8.4 Secondary hyperparathyroidism monitor phosphorus and PTH level Current dialysis axis his central venous catheter Pulmonary embolism currently on heparin needs close monitoring of hemoglobin Counseled and educated regarding renal related issues We'll continue to follow and make recommendation from renal standpoint Objective - Vital Signs Vital signs: Vital Signs - 12hr 09/12/17 09/12/17 09/12/17 00:27 04:00 04:36 Temperature 98.8 F 98.3 F Pulse Rate 88 90 82 Respiratory 18 18 Rate Blood Pressure 147/95 136/85 Blood Pressure [Left] O2 Sat by Pulse 100 100 Oximetry 09/12/17 09/12/17 07:13 10:00 Temperature 98.3 F Pulse Rate 99 H 83 Respiratory 18 Rate Blood Pressure Blood Pressure 135/86 [Left] O2 Sat by Pulse 99 Oximetry - Lab 09/12/17 05:41 09/11/17 05:11 Most recent lab results Calcium 8.0 mg/dL (8.4-10.2) L 09/11/17 05:11
--- NOTE | 2017-09-13 07:24 | Vascular Lab Report ---
LOWER EXTREMITY VENOUS DUPLEX: REASON FOR EXAM: Pain and swelling of the lower extremities. COMMENTS ON THE RIGHT: All veins visualized are freely compressible without evidence of internal echogenicity. Flow is spontaneous and phasic throughout. COMMENTS ON THE LEFT: All veins visualized are freely compressible without evidence of internal echogenicity. Flow is spontaneous and phasic throughout. 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 IMPRESSION: No evidence of acute or chronic deep venous thrombosis in either lower extremity.
== END 2017-09-12 12:59 | disposition home or self-care (01) | DRG 175 ==
LOC: ED 22:56 → 4A 23:56
PROVIDERS: ADMIT Internal Medicine; ATTEND Internal Medicine
PROC: 5A1D70Z Performance of Urinary Filtration, Intermittent, Less than 6 Hours Per Day (ICD-10-PCS; principal; 2017-09-11)
DX: I26.99 Other pulmonary embolism without acute cor pulmonale (principal); N18.6 End stage renal disease; I12.0 Hypertensive chronic kidney disease with stage 5 chronic kidney disease or end stage renal disease; F17.210 Nicotine dependence, cigarettes, uncomplicated; N25.81 Secondary hyperparathyroidism of renal origin; E66.01 Morbid (severe) obesity due to excess calories; Z68.41 Body mass index [BMI] 40.0-44.9, adult; D63.8 Anemia in other chronic diseases classified elsewhere; Z88.8 Allergy status to other drugs, medicaments and biological substances; Z99.2 Dependence on renal dialysis
CPT/HCPCS: 36415; 80048; 85014; 85018; 85025; 85049; 85520; 85610; 85730; 93970; 99285; J1644; J7030

== ENCOUNTER 2017-11-18 09:36 | Emergency (ER) | payer MEDICAID ==
--- NOTE | 2017-11-18 14:53 | Emergency Department Report ---
Chief Complaint: Abdominal Pain Stated Complaint: RIGHT FLANK PAIN - HPI History of Present Illness: Ms. Sanderson is a 37 yo female with hx of bilateral nephrostomy tubes and ESRD. She obtains care at [facility]. The right nephrostomy tube is disconnected. Patient continues to make urine. She is a dialysis patient. She now has right flank pain. - Exam Vital Signs: Vital Signs 11/18/17 09:56 Temperature 98.8 F Pulse Rate 106 H Respiratory 16 Rate Blood Pressure 114/75 O2 Sat by Pulse 100 Oximetry MSE screening note: Focused history and physical exam performed. Due to findings the following was ordered: ED Disposition for MSE Condition: Stable Instructions: Abdominal Pain (ED) Referrals: PRIMARY CARE, [Primary Care Provider] - 3-5 Days
[2017-11-18] MEDS ORDERED: ZOFRAN ODT PO ONE (14:55)
[2017-11-18] MEDS ORDERED: MORPHINE IM ONE (14:55)
[2017-11-18 15:52] LABS: Calcium 8.9 mg/dL (8.4-10.2)
--- NOTE | 2017-11-18 16:29 | Emergency Department Report ---
ED General Adult HPI - General Chief complaint: Abdominal Pain Stated complaint: RIGHT FLANK PAIN Time Seen by Provider: 11/18/17 16:22 Source: patient, EMS Mode of arrival: Wheelchair Limitations: No Limitations - History of Present Illness Initial comments: The patient states that she had bilateral nephrostomy tubes placed on Wednesday. She states that she was discharged from the hospital on Wednesday. This morning she awoke and found that her left nephrostomy tube had come out. She believes she still has a "wire" in her back. She states that she does urinate. She denies any dysuria fever or chills. She is not vomiting. She has been compliant with her dialysis. When asked why she had bilateral nephrostomy tubes she states it was because she still had "urine in my kidney". I presume she had obstruction. Patient states that she had some discomfort of her right flank. However, this is largely resolved. Last dialysis was yesterday. The patient stated that she had an appointment at [facility] today for urology clinic. She states that she called [facility] and was told to call an ambulance to take her "to the nearest hospital". -: This morning - Related Data Previous Rx's Medication Instructions Recorded Last Taken Type Apixaban [Eliquis] 5 mg PO BID #74 tablet 09/12/17 Unknown Rx Allergies Allergy/AdvReac Type Severity Reaction Status Date / Time ergocalciferol (vitamin D2) Allergy Hives Verified 09/09/17 14:47 [From Vitamin D2] ED Review of Systems ROS: Stated complaint: RIGHT FLANK PAIN Other details as noted in HPI Constitutional: denies: chills, fever Eyes: denies: eye pain, eye discharge, vision change ENT: denies: ear pain, throat pain Respiratory: denies: cough, shortness of breath, wheezing Cardiovascular: denies: chest pain, palpitations Endocrine: no symptoms reported Gastrointestinal: denies: abdominal pain, nausea, diarrhea Genitourinary: denies: urgency, dysuria, discharge Musculoskeletal: back pain. denies: joint swelling, arthralgia Skin: denies: rash, lesions Neurological: denies: headache, weakness, paresthesias Psychiatric: denies: anxiety, depression Hematological/Lymphatic: denies: easy bleeding, easy bruising ED Past Medical Hx - Past Medical History Previous Medical History?: Yes Hx Hypertension: (Denies) Hx Heart Attack/AMI: No Hx Congestive Heart Failure: No Hx Diabetes: No Hx Renal Disease: Yes (M,W, F) Hx Asthma: No Additional medical history: Anemia - Surgical History Past Surgical History?: Yes Additional Surgical History: Right chest permcath. bilateral nephrostomy tube placement - Social History Smoking Status: Never Smoker Substance Use Type: Marijuana - Medications Home Medications: Home Medications Medication Instructions Recorded Confirmed Last Taken Type Apixaban [Eliquis] 5 mg PO BID #74 tablet 09/12/17 Unknown Rx ED Physical Exam - General Limitations: No Limitations General appearance: alert, in no apparent distress, other (Patient is incessantly sucking her thumb) - Head Head exam: Present: atraumatic, normocephalic - Eye Eye exam: Present: normal appearance - ENT ENT exam: Present: mucous membranes moist - Neck Neck exam: Present: normal inspection - Respiratory Respiratory exam: Present: normal lung sounds bilaterally. Absent: respiratory distress - Cardiovascular Cardiovascular Exam: Present: regular rate, normal rhythm. Absent: systolic murmur, diastolic murmur, rubs, gallop - GI/Abdominal GI/Abdominal exam: Present: soft, normal bowel sounds. Absent: distended, tenderness, guarding, rebound, rigid - Extremities Exam Extremities exam: Present: normal inspection - Back Exam Back exam: Present: normal inspection - Neurological Exam Neurological exam: Present: alert, oriented X3, CN II-XII intact. Absent: motor sensory deficit - Psychiatric Psychiatric exam: Present: normal affect, normal mood - Skin Skin exam: Present: warm, dry, intact, normal color. Absent: rash ED Course Vital Signs 11/18/17 11/18/17 09:56 16:31 Temperature 98.8 F 98.5 F Pulse Rate 106 H 88 Respiratory 16 22 Rate Blood Pressure 114/75 Blood Pressure 127/79 [Left] O2 Sat by Pulse 100 100 Oximetry - Reevaluation(s) Reevaluation #1: I spoke with the urologist conduit helper at [facility], Dr. Mancini. She stated that she did not feel that the patient needed to be transferred at this time. She stated that they would arrange for transport back to the hospital for outpatient placement tomorrow morning. I have informed the patient of the plan as above described. I did explain to Dr. Jo that we did not have a urologist conduit helper today. 11/18/17 18:02 ED Medical Decision Making - Lab Data Result diagrams: 11/18/17 15:14 11/18/17 15:14 Laboratory Results - last 24 hr 11/18/17 15:14 Sodium 135 L Potassium 4.5 Chloride 92.6 L Carbon Dioxide 29 Anion Gap 18 BUN 25 H Creatinine 8.5 H Estimated GFR 6 BUN/Creatinine Ratio 3 Glucose 97 Calcium 8.9 Critical care attestation.: If time is entered above; I have spent that time in minutes in the direct care of this critically ill patient, excluding procedure time. ED Disposition Clinical Impression: Nephrostomy tube displaced, End stage renal disease Disposition: TO HOME OR SELFCARE Is pt being admited?: No Does the pt Need Aspirin: No Condition: Stable Instructions: Abdominal Pain (ED), Chronic Kidney Disease (ED), Nephrostomy Tube Care (ED) Additional Instructions: Dr. Mancini is a urologist at [facility]. She stated that she will arrange transport back to [facility] tomorrow a.m. Call urology department in a.m. to confirm. Return as needed any acute change or problem. Referrals: PRIMARY CARE, [Primary Care Provider] - 3-5 Days Time of Disposition: 18:02
[2017-11-18 16:32] VITALS: BP 127/79
[2017-11-18 16:54] LABS: Basophils % (Auto) 0.3 % (0.0-1.8); Eosinophils # (Auto) 0.2 K/mm3 (0.0-0.4); Eosinophils % (Auto) 2.4 % (0.0-4.3); Hematocrit 25.7 % (30.3-42.9); Hemoglobin 8.1 gm/dl (10.1-14.3); Lymphocytes # (Auto) 1.7 K/mm3 (1.2-5.4); Lymphocytes % (Auto) 17.1 % (13.4-35.0); Mean Corpuscular HGB Conc 32 % (30-34); Mean Corpuscular Hemoglobin 28 pg (28-32); Mean Corpuscular Volume 89 fl (79-97); Monocytes # (Auto) 0.9 K/mm3 (0.0-0.8); Monocytes % (Auto) 9.5 % (0.0-7.3); Platelet Count 409 K/mm3 (140-440); Red Cell Distribution Width 16.1 % (13.2-15.2)
[2017-11-18] MEDS ORDERED: NORCO PO ONE (17:57)
[2017-11-18] MEDS ORDERED: NORCO 5/325 PO ONE (18:05)
== END 2017-11-18 18:54 | disposition home or self-care (01) ==
LOC: ED 09:36
DX: N99.522 Malfunction of incontinent external stoma of urinary tract (principal); I12.0 Hypertensive chronic kidney disease with stage 5 chronic kidney disease or end stage renal disease; N18.6 End stage renal disease; Z99.2 Dependence on renal dialysis
CPT/HCPCS: 36415; 80048; 85025

== ENCOUNTER 2018-11-04 05:41 | Day surgery (SDC) | payer MEDICARE ==
[~2018-11-04 05:41] MED LIST: VERSED IV NR
[2018-11-04] MEDS ORDERED: NACL 0.9% 1000 ML 1,000 ML IV SCH (06:00)
[2018-11-04] MEDS ORDERED: ANCEF/STERILE WATER 2 GM/20 ML 2 GM/20 ML SYRINGE IV NR (06:00)
[2018-11-04] MEDS ORDERED: NACL BACTERIOSTATIC INFILTRATI ONE (06:18)
[2018-11-04 06:49] LABS: Basophils % (Auto) 0.9 % (0.0-1.8); Eosinophils % (Auto) 3.8 % (0.0-4.3); Hematocrit 35.1 % (30.3-42.9); Hemoglobin 11.5 gm/dl (10.1-14.3); Lymphocytes % (Auto) 30.6 % (13.4-35.0); Mean Corpuscular HGB Conc 33 % (30-34); Mean Corpuscular Volume 95 fl (79-97); Platelet Count 274 K/mm3 (140-440); Red Blood Count 3.71 M/mm3 (3.65-5.03); Red Cell Distribution Width 16.4 % (13.2-15.2)
[2018-11-04] MEDS ORDERED: HEPARIN 10,000 UNITS/10 ML ONE (06:49)
[2018-11-04] MEDS ORDERED: NACL 0.9% 500 ML 500 ML ONE (06:49)
[2018-11-04] MEDS ORDERED: MARCAINE-EPI 0.5%-1:200,000 INFILTRATI ONE ×2 (06:49→08:30)
[2018-11-04] MEDS ORDERED: MARCAINE 0.5% INFILTRATI ONE (06:49)
[2018-11-04 06:50] LABS: Basophils # (Auto) 0.1 K/mm3 (0.0-0.1); Eosinophils # (Auto) 0.3 K/mm3 (0.0-0.4); Lymphocytes # (Auto) 2.5 K/mm3 (1.2-5.4); Monocytes # (Auto) 0.7 K/mm3 (0.0-0.8)
[2018-11-04] MEDS ORDERED: DIPRIVAN 10 MG/ML IV ONE (07:09)
[2018-11-04] MEDS ORDERED: XYLOCAINE MPF 2% ONE (07:09)
[2018-11-04] MEDS ORDERED: SUBLIMAZE ONE ×5 (07:09→12:28)
[2018-11-04 07:28] LABS: Calcium 8.7 mg/dL (8.4-10.2)
[2018-11-04] MEDS ORDERED: VERSED IV NR (07:30)
[2018-11-04] MEDS ORDERED: TRANSDERM-SCOP TD NR (07:30)
[2018-11-04] MEDS ORDERED: SUBLIMAZE IV PRN (07:48)
--- NOTE | 2018-11-04 07:50 | Anesthesia Consultation ---
Anesthesia Consult and Med Hx Date of service: 11/04/18 - Airway Anesthetic Teeth Evaluation: Good ROM Head & Neck: Adequate Mental/Hyoid Distance: Adequate Mallampati Class: Class III Intubation Access Assessment: Possibly Difficult (previous easy LMA 5) - Pulmonary Exam CTA: Yes - Cardiac Exam Cardiac Exam: RRR - Pre-Operative Health Status ASA Pre-Surgery Classification: ASA4 Proposed Anesthetic Plan: General - Pulmonary Hx Smoking: Yes (marijuana daily) Hx Asthma: No Hx Respiratory Symptoms: No (no recent cough or flu-like symptoms) - Cardiovascular System Hx Hypertension: No Hx Heart Attack/AMI: No Hx Percutaneous Transluminal Coronary Angioplasty (PTCA): No - Central Nervous System Hx Seizures: No CVA: No Hx Psychiatric Problems: No - Gastrointestinal Hx Gastroesophageal Reflux Disease: No - Endocrine Hx End Stage Renal Disease: Yes (last HD 11/03/18) Hx Liver Disease: No Hx Insulin Dependent Diabetes: No Hx Non-Insulin Dependent Diabetes: No Hx Thyroid Disease: No - Hematic Hx Anemia: Yes - Other Systems Hx Substance Use: Yes (Marijuana use daily) Hx Obesity: Yes - Additional Comments Anesthesia Medical History Comments: Hx PONV with previous anesthetic. BMP pending.
--- NOTE | 2018-11-04 07:50 | Anesthesia Day of Surgery ---
Anesthesia Day of Surgery - Day of Surgery Patient Examined: Yes Patient H&P Reviewed: Yes Patient is NPO: Yes
[2018-11-04] MEDS ORDERED: NACL 0.9% IR ONE (08:30)
[2018-11-04] MEDS ORDERED: NEO SYNEPHRINE ONE (08:44)
[2018-11-04] MEDS ORDERED: HEPARIN 10,000 UNITS/10 ML 2,000 UNIT in NACL 0.9% 500 ML 500 ML IR ONE (09:12)
[2018-11-04] MEDS ORDERED: ZOFRAN ONE ×2 (11:30→13:21)
--- NOTE | 2018-11-04 12:03 | Operative Report ---
Operative Report Operative Report: Operative note: Date: 11/04/2018 Preoperative diagnosis: Endstage renal disease on hemodialysis via right IJ PermCath. Patient had a brachiobasilic AV fistula creation as a first stage. Postoperative diagnosis: Same. Operation: Elevation of left basilic AV fistula Surgeon: Shanika Mckinley. Asst.: None Anesthesia: Gen. EBL: Less than 50 mL Findings: musculocutaneous nerve identified and preserved, at the end of procedure identified good radial pulse and palpable thrill Indications: 38-year-old lady on hemodialysis via right IJ PermCath and end- stage renal disease had previously underwent first stage brachiobasilic fistula creation. Now came in for second stagebasilic vein elevation. She understood all risks, benefits and alternatives of procedure and chose to proceed and signed informed consent. Operative details: Patient was brought to the operating room and placed in supine position with left arm on extension table. It was prepped and draped in sterile fashion. Vein was marked using ultrasound. Timeout was performed and all team members in agreement. Incision was created on marked surface on top of basilic vein initially closer to arterial portion using gently entered with electrocautery to the vein it was dissected and taken a vessel loop to have more retraction. Extending incision and dissecting the vein using Metzenbaum scissors it was dissected throughout its length on the arm into the axilla. All branches were ligated and divided. Respective tunnel was marked and inserted superficially using Theresa-Wiluz tunneler. Marcaine was at the wound injected on top of the tunneler. Head was changed to a small #4. patient was heparinized with 2000 units of heparin. Proximally the vein was clamped using bulldog and marked. It was transected close to arterial anastomosis in a beveled fashion with Christine scissors. Vein was flushed. It was tunneled successfully and then flushed with heparinized saline. Anastomosis was created using 6-0 Prolene in a running fashion. Upon completion of anastomosis proximal distal control was opened and good thrill appreciated superficially in the basilic vein. Radial pulse was easily palpable. Wound edges were anesthetized with Marcaine and closed in 2 layers was through Vicryl and 4-0 Monocryl. Dermabond was applied. Patient tolerated procedure well and was transferred to PACU in stable condition.
--- NOTE | 2018-11-04 12:08 | Short Stay Summary ---
Short Stay Documentation Date of service: 11/04/18 - History H&P: obtained from office - Allergies and Medications Current Medications: Allergies cholecalciferol (vitamin D3) [From Vitamin D3] Allergy (Intermediate, Verified 11/04/18 06:31) Rash rash ergocalciferol (vitamin D2) [From Vitamin D2] Allergy (Mild, Verified 11/04/18 06:31) Rash rash Home Medications Medication Instructions Recorded Confirmed Last Taken Type Ergocalciferol(Vitamin D2)(Nf) 400 unit PO DAILY 08/18/18 11/01/18 08/21/18 09:00 History [Vitamin D (Nf)] Sevelamer Carbonate [Renvela] 800 mg PO TID 08/18/18 11/01/18 08/21/18 18:00 History HYDROcodone/APAP 5-325 [[place] 1 each PO Q6HR PRN #20 tablet 08/22/18 11/01/18 Unknown Rx 5/325] Active Medications Fentanyl (Sublimaze) 50 mcg IV Q15MIN PRN PRN Reason: Pain , Severe (7-10) Cefazolin Sodium (Ancef/Sterile Water 2 Gm/20 Ml) 2 gm in 20 mls @ 80 mls/hr IV PREOP NR; Protocol Stop: 11/04/18 23:00 Sodium Chloride (Nacl 0.9% 1000 Ml) 1,000 mls @ 42 mls/hr IV DIRECT TAYLOR Last Admin: 11/04/18 07:50 Dose: 42 mls/hr Documented by: Midazolam HCl (Versed) 2 mg IV ONCE NR Stop: 11/04/18 21:00 Last Admin: 11/04/18 07:49 Dose: 2 mg Documented by: Scopolamine (Transderm-Scop) 1 each TD ONCE NR Stop: 11/04/18 21:00 Last Admin: 11/04/18 07:49 Dose: 1 each Documented by: - Brief post op/procedure progress note Date of procedure: 11/04/18 Pre-op diagnosis: end-stage renal disease, status post first stage brachial basilic AV fistul Post-op diagnosis: same Procedure: Left basilic vein elevation Anesthesia: GETA Findings: Muscular cutaneous nerve identified and preserved, going through palpable over the fistula palpable radial pulse Surgeon: DEAN SILVERIO Estimated blood loss: minimal Pathology: none - Disposition Condition at discharge: Good Disposition: DC-01 TO HOME OR SELFCARE Short Stay Discharge Plan Diet: renal Wound: open to air Special Instructions: no heavy lifting Follow up with: RAJNI SAMUELS MD [Primary Care Provider] - 7 Days DEAN SILVERIO DO [Staff Physician] - 14 Days Prescriptions: HYDROcodone/ACETAMINOPHEN [[place] 5-325 Tablet] 1 each PO Q6HR PRN #10 tablet PRN Reason: Pain , Severe (7-10)
[2018-11-04] MEDS ORDERED: NORCO 5/325 PO PRN (12:58)
[2018-11-04] MEDS ORDERED: ZOFRAN IV ONE (13:23)
[2018-11-04 14:49] VITALS: BP 111/72
[2018-11-04] MEDS ORDERED: METHERGINE IM ONE (15:17)
== END 2018-11-04 05:42 | disposition home or self-care (01) ==
LOC: OR 05:41
PROVIDERS: ATTEND Surgery Vascular Surgery
DX: T82.898A Other specified complication of vascular prosthetic devices, implants and grafts, initial encounter (principal); I12.0 Hypertensive chronic kidney disease with stage 5 chronic kidney disease or end stage renal disease; N18.6 End stage renal disease; D64.9 Anemia, unspecified; M19.90 Unspecified osteoarthritis, unspecified site; G43.909 Migraine, unspecified, not intractable, without status migrainosus; F17.210 Nicotine dependence, cigarettes, uncomplicated; E66.9 Obesity, unspecified; Z68.36 Body mass index [BMI] 36.0-36.9, adult; Z79.899 Other long term (current) drug therapy; Z88.8 Allergy status to other drugs, medicaments and biological substances; Z86.711 Personal history of pulmonary embolism; Z86.718 Personal history of other venous thrombosis and embolism; Z98.890 Other specified postprocedural states; Z80.9 Family history of malignant neoplasm, unspecified
CPT/HCPCS: 36415; 36832; 80048; 84703; 85025; J0690; J1644; J2250; J2370; J2405; J2704; J3010; J7030; J7040; J2210

== ENCOUNTER 2020-03-05 15:13 | Observation (INO) | payer MEDICARE ==
[2020-03-05 16:08] LABS: Bilirubin,Urine NEG (Negative); Blood,Urine MOD (Negative); Color,Urine Yellow (Yellow); Mucus,Urine FEW /HPF; Urobilinogen,Urine < 2.0 mg/dL (<2.0)
[2020-03-05 16:09] LABS: WBC,Urine > 182.0 /HPF (0.0-6.0)
[2020-03-05 16:38] LABS: Basophils % (Auto) 0.6 % (0.0-1.8); Eosinophils # (Auto) 0.1 K/mm3 (0.0-0.4); Eosinophils % (Auto) 2.5 % (0.0-4.3); Lymphocytes # (Auto) 1.2 K/mm3 (1.2-5.4); Lymphocytes % (Auto) 22.1 % (13.4-35.0); Mean Corpuscular HGB Conc 30 % (30-34); Mean Corpuscular Volume 89 fl (79-97); Monocytes # (Auto) 0.3 K/mm3 (0.0-0.8); Monocytes % (Auto) 4.8 % (0.0-7.3); Red Blood Count 3.91 M/mm3 (3.65-5.03)
[2020-03-05 16:40] LABS: Hematocrit 34.9 % (30.3-42.9); Hemoglobin 10.6 gm/dl (10.1-14.3); Platelet Count 234 K/mm3 (140-440)
[2020-03-05] MEDS ORDERED: SODIUM POLYSTYRENE 15 GM/60 ML ORAL LIQD PO ONE (19:22)
[2020-03-05] MEDS ORDERED: SODIUM BICARBONATE 2 MEQ/2 ML SYRINGE IV ONE (19:22)
[2020-03-05] MEDS ORDERED: INSULIN REGULAR, HUMAN 100 UNITS/1 ML IV ONE (19:22)
[2020-03-05] MEDS ORDERED: DEXTROSE 50% IN WATER (25GM) 50 ML SYRINGE IV ONE (19:22)
--- NOTE | 2020-03-05 20:31 | Emergency Department Report ---
ED General Adult HPI - General Chief complaint: Abdominal Pain Stated complaint: N/V/DIARRHEA Time Seen by Provider: 03/05/20 19:21 Source: patient, EMS Mode of arrival: Ambulatory Limitations: No Limitations - History of Present Illness Initial comments: Patient is a 40-year-old F [place]raini female with a past medical history of end- stage renal disease who is having issues getting into a dialysis center currently who is presenting with nausea vomiting. Patient states that her last dialysis was Wednesday. Today will be the day that she would be due for dialysis. Patient recently moved back to this area from [place] and is having difficulty getting a chair time. She has no program review director locally as of yet. States she had nausea vomiting x3 today which she states is normal for her when her potassium elevates. She has some mild diarrhea several days ago. Patient denies fevers chills cough cold congestion or shortness of breath. - Related Data Home Medications Medication Instructions Recorded Confirmed Last Taken Ergocalciferol(Vitamin D2)(Nf) 400 unit PO DAILY 08/18/18 11/01/18 08/21/18 09:00 [Vitamin D (Nf)] Sevelamer Carbonate [Renvela] 800 mg PO TID 08/18/18 11/01/18 08/21/18 18:00 Previous Rx's Medication Instructions Recorded Last Taken Type HYDROcodone/APAP 5-325 [[place] 1 each PO Q6HR PRN #20 tablet 08/22/18 Unknown Rx 5-325 mg TAB] HYDROcodone/ACETAMINOPHEN [[place] 1 each PO Q6HR PRN #10 tablet 11/04/18 Unknown Rx 5-325 Tablet] Allergies Allergy/AdvReac Type Severity Reaction Status Date / Time cholecalciferol (vitamin D3) Allergy Intermediate Rash Verified 11/04/18 06:31 [From Vitamin D3] ergocalciferol (vitamin D2) Allergy Mild Rash Verified 11/04/18 06:31 [From Vitamin D2] ED Review of Systems ROS: Stated complaint: N/V/DIARRHEA Other details as noted in HPI Comment: All other systems reviewed and negative ED Past Medical Hx - Past Medical History Previous Medical History?: Yes Hx Hypertension: No Hx Heart Attack/AMI: No Hx Pulmonary Embolism: Yes Hx Liver Disease: No Hx Renal Disease: Yes Hx Arthritis: Yes (hands, feet, knees) Hx Headaches / Migraines: Yes (Migraines) Hx Seizures: No Hx Kidney Stones: Yes Hx Asthma: No Additional medical history: Anemia - Surgical History Past Surgical History?: Yes Additional Surgical History: Right chest permcath. bilateral nephrostomy tube placement. fistula left arm - Social History Smoking Status: Never Smoker Substance Use Type: None - Medications Home Medications: Home Medications Medication Instructions Recorded Confirmed Last Taken Type Ergocalciferol(Vitamin D2)(Nf) 400 unit PO DAILY 08/18/18 11/01/18 08/21/18 09:00 History [Vitamin D (Nf)] Sevelamer Carbonate [Renvela] 800 mg PO TID 08/18/18 11/01/18 08/21/18 18:00 History HYDROcodone/APAP 5-325 [[place] 1 each PO Q6HR PRN #20 tablet 08/22/18 11/01/18 Unknown Rx 5-325 mg TAB] HYDROcodone/ACETAMINOPHEN [[place] 1 each PO Q6HR PRN #10 tablet 11/04/18 Unknown Rx 5-325 Tablet] ED Physical Exam - General Limitations: No Limitations General appearance: alert, in no apparent distress - Head Head exam: Present: atraumatic, normocephalic - Eye Eye exam: Present: normal appearance - ENT ENT exam: Present: mucous membranes moist - Neck Neck exam: Present: normal inspection - Respiratory Respiratory exam: Present: normal lung sounds bilaterally. Absent: respiratory distress, wheezes, rales, rhonchi - Cardiovascular Cardiovascular Exam: Present: regular rate, normal rhythm, normal heart sounds. Absent: systolic murmur, diastolic murmur, rubs, gallop - GI/Abdominal GI/Abdominal exam: Present: soft, normal bowel sounds. Absent: distended, tenderness, guarding, rebound - Extremities Exam Extremities exam: Present: normal inspection - Back Exam Back exam: Present: normal inspection - Neurological Exam Neurological exam: Present: alert, oriented X3 - Psychiatric Psychiatric exam: Present: normal affect, normal mood - Skin Skin exam: Present: warm, dry, intact, normal color. Absent: rash ED Course Vital Signs 03/05/20 15:41 Temperature 98.2 F Pulse Rate 52 L Respiratory 16 Rate Blood Pressure 138/68 O2 Sat by Pulse 100 Oximetry ED Medical Decision Making - Lab Data Result diagrams: 03/05/20 15:58 03/05/20 15:58 - EKG Data -: EKG Interpreted by Me EKG shows normal: sinus rhythm, axis, intervals, QRS complexes, ST-T waves Rate: bradycardia - Medical Decision Making Discussed the case with Dr. Vasquez who will dialyze the patient in the morning. Patient is potassium was elevated but she has no EKG changes. Patient was given cocktail of insulin and D50 Kayexalate sodium bicarb. Patient's nausea is imp roved without medication. Patient will be admitted for dialysis. Critical care attestation.: If time is entered above; I have spent that time in minutes in the direct care o f this critically ill patient, excluding procedure time. ED Disposition Clinical Impression: End-stage renal disease needing dialysis, Hyperkalemia Acute gastritis Qualifiers: Gastritis type: other gastritis Gastritis bleeding: without bleeding Qualified Code(s): K29.00 - Acute gastritis without bleeding Disposition: OP ADMIT IP TO THIS HOSP Is pt being admited?: Yes Does the pt Need Aspirin: No Condition: Stable Time of Disposition: 20:30
[2020-03-05] MEDS ORDERED: SODIUM BICARB 8.4% 50 MEQ/50 ML SYRINGE IV ONE ×2 (22:00→22:17)
[2020-03-05] MEDS ORDERED: ACETAMINOPHEN 325 MG TAB PO PRN (22:07)
[2020-03-05] MEDS ORDERED: ONDANSETRON 4 MG/2 ML INJ IV PRN (22:07)
--- NOTE | 2020-03-05 22:08 | History and Physical Report ---
History of Present Illness Date of admission: 03/05/20 20:32 History of present illness: 40-year-old woman history of end-stage renal disease on dialysis Wednesday, , Wednesday comes emergency room for evaluation. The patient states that she dislocated from [place], she is waiting for clearance from her old di alysis clinic to restart hemodialysis. Her last dialysis was on Wednesday at [facility]. Patient states she has no complaints other than needing to be dialyzed Review Of Systems: Constitutional: no weight loss Ears, eyes, nose, mouth and throat: no nasal congestion, no nasal discharge, no sinus pressure, blurry vision, diplopia Neck: No neck pain or rigidity. Cardiovascular: no chest pain, orthopnea, palpitations Respiratory: No shortness of breath, cough Gastrointestinal: no abdominal pain, hematochezia Genitourinary : no dysuria, frequency , hematuria Musculoskeletal: no muscle ache Integumentary: no rash, no pruritis Neurological: no parathesias, focal weakness Endocrine: no cold or heat intolerance, no polyuria or polydipsia Hematologic/Lymphatic: no easy bruising, no easy bleeding, no gland swelling Allergic/Immunologic: no urticaria, no angioedema. PAST MEDICAL HISTORY:end-stage renal disease PAST SURGICAL HISTORY: AV fistula FAMILY HISTORY: Hypertension SOCIAL HISTORY: no alcohol or tobacco, + marijuana Medications and Allergies Allergies Allergy/AdvReac Type Severity Reaction Status Date / Time cholecalciferol (vitamin D3) Allergy Intermediate Rash Verified 11/04/18 06:31 [From Vitamin D3] ergocalciferol (vitamin D2) Allergy Mild Rash Verified 11/04/18 06:31 [From Vitamin D2] Home Medications Medication Instructions Recorded Confirmed Last Taken Type Ergocalciferol(Vitamin D2)(Nf) 400 unit PO DAILY 08/18/18 11/01/18 08/21/18 09:00 History [Vitamin D (Nf)] Sevelamer Carbonate [Renvela] 800 mg PO TID 08/18/18 11/01/18 08/21/18 18:00 History HYDROcodone/APAP 5-325 [[place] 1 each PO Q6HR PRN #20 tablet 08/22/18 11/01/18 U nknown Rx 5-325 mg TAB] HYDROcodone/ACETAMINOPHEN [[place] 1 each PO Q6HR PRN #10 tablet 11/04/18 Unknown Rx 5-325 Tablet] Exam - Physical Exam Narrative exam: Gen. appearance: Patient lying in bed in no acute distress HEENT: Normocephalic/atraumatic, pupils equal round reactive to light, extra alkaline movement intact, no scleral icterus, no JVD or thyromegaly or nodule, neck is supple, mucous membrane moist, no erythema or exudate Heart: S1-S2, regular rate and rhythm Lungs: Clear to auscultation bilateral breathing comfortable Abdomen: Positive bowel sounds, nontender, nondistended, no organomegaly Extremities: No edema, cyanosis, clubbing Neuro:: Oriented 3 , cranial nerves II-12 intact, speech, motor intact Skin: No rash, nodules, warm dry - Constitutional Vitals: Temp Pulse Resp BP Pulse Ox 98.2 F 57 L 9 L 133/75 100 03/05/20 15:41 03/05/20 21:16 03/05/20 21:16 03/05/20 21:16 03/05/20 21:16 Results - Labs CBC & Chem 7: 03/05/20 15:58 03/05/20 15:58 Labs: Abnormal lab results 03/05/20 03/05/20 03/05/20 Range/Units 15:43 15:58 15:58 MCH 27 L (28-32) pg RDW 18.0 H (13.2-15.2) % Potassium 5.9 H (3.6-5.0) mmol/L Carbon Dioxide 21 L (22-30) mmol/L BUN 112 H (7-17) mg/dL Creatinine 16.7 H (0.7-1.2) mg/dL POC Glucose (70-105) Calcium 8.0 L (8.4-10.2) mg/dL Total Protein 8.3 H (6.3-8.2) g/dL Urine WBC (Auto) > 182.0 H (0.0-6.0) /HPF 03/05/20 Range/Units 20:56 MCH (28-32) pg RDW (13.2-15.2) % Potassium (3.6-5.0) mmol/L Carbon Dioxide (22-30) mmol/L BUN (7-17) mg/dL Creatinine (0.7-1.2) mg/dL POC Glucose 162 H (70-105) Calcium (8.4-10.2) mg/dL Total Protein (6.3-8.2) g/dL Urine WBC (Auto) (0.0-6.0) /HPF Assessment and Plan Assessment End-stage renal disease on dialysis renal was consulted for dialysis Hyperkalemia Status post hyperkalemia cocktail Follow potassium level DVT prophylaxis initiated
[2020-03-06] MEDS ORDERED: cefTRIAXone/NS 1 GM/50 ML 1 GM/50 ML BAG IV ONE (01:35)
[2020-03-06 04:54] LABS: Basophils % (Auto) 0.5 % (0.0-1.8); Eosinophils # (Auto) 0.2 K/mm3 (0.0-0.4); Eosinophils % (Auto) 3.1 % (0.0-4.3); Hematocrit 32.6 % (30.3-42.9); Hemoglobin 10.1 gm/dl (10.1-14.3); Lymphocytes # (Auto) 1.7 K/mm3 (1.2-5.4); Lymphocytes % (Auto) 32.8 % (13.4-35.0); Mean Corpuscular HGB Conc 31 % (30-34); Mean Corpuscular Volume 88 fl (79-97); Monocytes # (Auto) 0.4 K/mm3 (0.0-0.8); Monocytes % (Auto) 6.9 % (0.0-7.3); Platelet Count 204 K/mm3 (140-440); Red Blood Count 3.71 M/mm3 (3.65-5.03); Red Cell Distribution Width 17.8 % (13.2-15.2)
[2020-03-06 05:09] LABS: Calcium 7.9 mg/dL (8.4-10.2)
[2020-03-06 05:25] LABS: Hepatitis B Surface Antigen Non-Reactive (Negative); Hepatitis C Virus Antibody Non-Reactive (NonReactive)
[2020-03-06] MEDS ORDERED: HEPARIN 10,000 UNITS/10 ML VIAL IV PRN (07:39)
[2020-03-06] MEDS ORDERED: SODIUM CHLORIDE 0.9% 100 ML IV PRN (07:39)
[2020-03-06] MEDS ORDERED: EPOETIN ALFA 10,000 UNIT/1 ML INJ SUB-Q PRN (07:39)
[2020-03-06] MEDS ORDERED: ACETAMINOPHEN 325 MG TAB ONE (07:51)
--- NOTE | 2020-03-06 09:40 | Consultation ---
History of Present Illness - Reason for Consult Consult date: 03/06/20 end stage renal disease - History of Present Illness This is a 40 year old female patient with pmh significant for end stage renal disease on HD. She states she recently relocated to [place] but when it did not work out she returned to [place]. Prior to her move, she reports she was receiving HD at [facility]. After returning from [place] she has not had HD chair as outpatient and recently dialyzed at [facility] on 02/29/2020. She has not had dialysis since and presented to the ED with complaints of nausea and vomiting as she thought her potassium was elevated and she needed HD. At time of consultation, potassium had returned to normal range and patient denied nausea and vomiting. She states she has no local jewelry salesperson and upon chart review it appears pt has history of aggressive behavior towards clinic staff and providers. She states she was told by [facility] that she has chair but no day, time, or accepting jewelry salesperson confirmed. In addition, pt states she would need transportation set up. She has a L arm AVF that is functioning well as pt was on HD at time of consultation. She denies chest pain, fever, chills, rash, cough, shortness of breath. Labs on admission significant for potassium 5.9, bicarb 21, creatinine 16.7, BUN 112, calcium 8.0. At time of consultation, labs significant for bicarb 18, BUN 119, creatinine 17.0, calcium 7.9, phosphorus 5.4. Apparently at some point after completing HD patient chose to leave [place]. Nephrology was consulted for further treatment and evaluation. Past History Past Medical History: dialysis, ESRD Social history: single, Lives alone (reportedly staying at [facility]) Medications and Allergies Allergies Allergy/AdvReac Type Severity Reaction Status Date / Time cholecalciferol (vitamin D3) Allergy Intermediate Rash Verified 11/04/18 06:31 [From Vitamin D3] ergocalciferol (vitamin D2) Allergy Mild Rash Verified 11/04/18 06:31 [From Vitamin D2] Home Medications Medication Instructions Recorded Confirmed Last Taken Type Ergocalciferol(Vitamin D2)(Nf) 400 unit PO DAILY 08/18/18 11/01/18 08/21/18 09:00 History [Vitamin D (Nf)] Sevelamer Carbonate [Renvela] 800 mg PO TID 08/18/18 11/01/18 08/21/18 18:00 History HYDROcodone/APAP 5-325 [[place] 1 each PO Q6HR PRN #20 tablet 08/22/18 11/01/18 Unknown Rx 5-325 mg TAB] HYDROcodone/ACETAMINOPHEN [[place] 1 each PO Q6HR PRN #10 tablet 11/04/18 Unknown Rx 5-325 Tablet] Active Meds: Active Medications Acetaminophen (Tylenol) 650 mg PO Q4H PRN PRN Reason: Pain MILD(1-3)/Fever >100.5/BALTAZAR Last Admin: 03/06/20 07:57 Dose: 650 mg Documented by: Epoetin Jerome (Procrit) 10,000 unit SUB-Q FARZANA PRN PRN Reason: hemodialysis Heparin Sodium (Porcine) (Heparin 10,000 Units/10 Ml) 2,000 unit IV FARZANA PRN PRN Reason: hemodialysis Ceftriaxone Sodium (Rocephin/Ns 1 Gm/50 Ml) 1 gm in 50 mls @ 100 mls/hr IV Q24HR TAYLOR; Protocol Last Admin: 03/05/20 23:50 Dose: 100 mls/hr Documented by: Sodium Chloride (Nacl 0.9%) 100 mls @ 999 mls/hr IV FARZANA PRN PRN Reason: Hypotension Ondansetron HCl (Zofran) 4 mg IV Q8H PRN PRN Reason: Nausea And Vomiting Sodium Chloride (Sodium Chloride Flush Syringe 10 Ml) 10 ml IV BID TAYLOR Sodium Chloride (Sodium Chloride Flush Syringe 10 Ml) 10 ml IV PRN PRN PRN Reason: LINE FLUSH Review of Systems Constitutional: no weight loss, no weight gain, no fever, no chills, no weakness Ears, nose, mouth and throat: no nasal congestion, no epistaxis Cardiovascular: no chest pain, no edema Respiratory: no cough, no shortness of breath Gastrointestinal: no abdominal pain, no nausea, no vomiting, no diarrhea Musculoskeletal: no muscle weakness, no muscle cramps Integumentary: no rash, no redness, no sores, no wounds Exam - Vital Signs Vital signs: Vital Signs Temp Pulse Resp BP Pulse Ox 98.2 F 52 L 16 138/68 100 03/05/20 15:41 03/05/20 15:41 03/05/20 15:41 03/05/20 15:41 03/05/20 15:41 - General Appearance General appearance: well-developed, well-nourished, appears stated age, obese EENT: ATNC, PERRL, mucous membranes moist Neck: Present: neck supple, trachea midline Respiratory: Clear to Ascultation Heart: regular, normal heart rate, S1S2, no murmurs Gastrointestinal: Present: normal, normoactive bowel sounds, obese. Absent: masses, guarding, organomegaly Integumentary: no rash, warm and dry, other (L arm AVF) Neurologic: no focal deficit, alert and oriented x3, strength 5/5 Musculoskeletal: Absent: deformities, erythema, clubbing Psychiatric: mood/affect appropriate, agitated Results - Lab Results 03/06/20 04:27 03/06/20 04:27 Most recent lab results Calcium 7.9 mg/dL (8.4-10.2) L 03/06/20 04:27 Phosphorus 5.40 mg/dL (2.5-4.5) H 03/06/20 04:27 Assessment and Plan 1. End stage renal disease: Last outpatient HD 02/28. Pt does not have confirmed HD clinic/chair time. Recently dialyzed at [facility]. Does not have local jewelry salesperson. L arm AVF functioning well. Hemodialysis: 03/06. 2. FEN: Hyperkalemia, improved, monitor. Hyperphosphatemia, HD today. Monitor lytes and volume status. 3. Obesity: 4. Medical noncompliance: Counseled on importance of having confirmed outpatient chair time to comply with scheduled HD. Pt ultimately left AMA this afternoon. H/o aggressive behavior towards clinic staff and frequent missed treatments.
[2020-03-06] MEDS ORDERED: SODIUM CHLORIDE*PRIMING MACHINE ONLY FOR DIALYSIS MC ONE ×2 (11:07→18:43)
[2020-03-06 13:57] VITALS: BP 133/67
--- NOTE | 2020-03-06 14:36 | Discharge Summary ---
Providers - Providers Date of Admission: 03/05/20 20:32 Date of discharge: 03/06/20 Attending physician: SANGITA DE LA VEGA 03/05/20 21:59 Consult to Physician [CONS] Urgent Comment: Consulting Provider: DIOR RAMIREZ Physician Instructions: Reason For Exam: esrd needing dialysis 03/06/20 11:03 Consult to Case Management [CONS] Routine Services Needed at Discharge: Illustrator Set Comment:: Dialysis center Primary care physician: CHRISTINE LEMOS MD Hospitalization Condition: Undetermined Hospital course: Patient is 40-year-old woman history of end-stage renal disease on dialysis Wednesday, , Wednesday presented to emergency room for evaluation. The patient states that she located from [place], she is waiting for clearance from her old dialysis clinic to restart hemodialysis. Her last dialysis was on Wednesday at [facility]. Patient states she has no complaints other than needing to be dialyze. She was seen and evaluated in ED. Labs reveal hyperkalemia of 5.9 , UTI. She was started on ceftriaxone and admitted. nephrology was consulted and she was started on dialysis. However same day , after dialysis she signed out and left against medical advice. Disposition: DC-07 LEFT AGAINST MED ADVICE - Discharge Diagnoses (1) End-stage renal disease needing dialysis Status: Acute (2) HTN (hypertension) Status: Acute (3) Hyperkalemia Status: Acute (4) UTI (urinary tract infection) Status: Acute Core Measure Documentation - Palliative Care Palliative Care/ Comfort Measures: Not Applicable - Core Measures Any of the following diagnoses?: none Exam - Constitutional Vitals: Temp Pulse Resp BP Pulse Ox 98.2 F 55 L 18 133/67 100 03/06/20 12:50 03/06/20 12:50 03/06/20 12:50 03/06/20 12:50 03/06/20 07:54 Plan Follow up with: CHRISTINE LEMOS MD [Primary Care Provider] - 7 Days
[2020-03-06] MEDS ORDERED: cefTRIAXone/NS 1 GM/50 ML 1 GM/50 ML BAG IV SCH (23:10)
== END 2020-03-06 14:15 | disposition left against medical advice (07) ==
LOC: ED 15:13 → 4A 20:32
PROVIDERS: ADMIT Internal Medicine; ATTEND Internal Medicine
DX: N18.6 End stage renal disease (principal); E87.5 Hyperkalemia; K29.00 Acute gastritis without bleeding; M19.042 Primary osteoarthritis, left hand; M19.041 Primary osteoarthritis, right hand; M19.072 Primary osteoarthritis, left ankle and foot; M19.071 Primary osteoarthritis, right ankle and foot; M17.0 Bilateral primary osteoarthritis of knee; G43.909 Migraine, unspecified, not intractable, without status migrainosus; Z99.2 Dependence on renal dialysis; Z87.442 Personal history of urinary calculi; Z96.0 Presence of urogenital implants; Z79.899 Other long term (current) drug therapy; Z88.8 Allergy status to other drugs, medicaments and biological substances
CPT/HCPCS: 36415; 80048; 80053; 80074; 81001; 82962; 84100; 84703; 85025; 93005; 96365; 96372; 96375; 99284; G0257; G0378; J0696; J0885; J1644; J7030; J1815